=== PATIENT | female | born 1985 | race Caucasian/White ===

== ENCOUNTER 2016-11-07 00:28 | Emergency (ER) | payer OTHER ==
[~2016-11-07 00:28] MED LIST: ALBUTEROL17 GM INH; NO MEDICATIONS; PERCOCET 5-3251 TAB PO; PHENERGAN25 M1 PO; PREDNISONE PO; PROMETHAZINE D118 ML PO; ROBAXIN500 MG PO; SINGULAIR PO; TORADOL10 MG PO; VOLTAREN75 MG PO; ZITHROMAX PO; ZITHROMAX1 G/PKT PO; ZYRTEC10 M2 PO
[2016-11-07 00:53] LABS: URINE SOURCE CLEAN CATCH
[2016-11-07 00:59] LABS: URINE APPEARANCE CLOUDY; URINE BILIRUBIN NEG (NEG); URINE BLOOD 1+ (NEG); URINE COLOR YELLOW; URINE GLUCOSE NEG (NEG); URINE KETONE NEG (NEG); URINE LEUKOCYTE ESTERASE NEG (NEG); URINE NITRATE NEG (NEG); URINE PH 5.5 (5-8); URINE PROTEIN NEG (NEG); URINE SPECIFIC GRAVITY 1.029 (1.003-1.035); URINE UROBILINOGEN 0.2 MG/DL (NEG)
[2016-11-07 01:02] LABS: CULTURE INDICATED? YES; URINE BACTERIA AUWI 1+ (NEGATIVE); URINE SQUAMOUS EPITHELIAL CELL OCC /[HPF]
== END 2016-11-07 02:25 | disposition home or self-care (01) ==
LOC: CED 00:28
DX: N39.0 Urinary tract infection, site not specified (principal); T78.40XA Allergy, unspecified, initial encounter; F17.210 Nicotine dependence, cigarettes, uncomplicated; Z98.51 Tubal ligation status
CPT/HCPCS: 81003; 84703; 87086; 99283